=== PATIENT | male | born 1970 | race Two or more races ===

== ENCOUNTER 2021-12-01 13:06 | Outpatient (CLI) | payer OTHER | END 2021-12-01 13:25 | disposition home or self-care (01) | LOC: RAD 13:06 | PROVIDERS: ATTEND Orthopaedic Surgery Sports Medicine | DX: M25.761 Osteophyte, right knee (principal); M76.52 Patellar tendinitis, left knee ==

== ENCOUNTER 2025-06-17 14:02 | Outpatient (CLI) | payer OTHER | END 2025-06-17 14:10 | disposition home or self-care (01) | LOC: RAD 14:02 | DX: M25.562 Pain in left knee (principal) ==